=== PATIENT | female | born 1955 | race Caucasian/White ===

== ENCOUNTER → 2022-02-12 | Outpatient (CLI) | payer MEDICARE | LOC: CARD 13:30 | DX: R00.1 Bradycardia, unspecified (principal) | CPT/HCPCS: 93225; 93226 ==

== ENCOUNTER 2023-03-20 00:14 | Emergency (ER) | payer MEDICARE ==
[~2023-03-20] VITALS: Ht 165.1 cm; Wt 59.8 kg
[2023-03-20] MEDS ORDERED: ORPHENADRINE 60 MG/2 ML AMP (ED ONLY) IVP STA (00:22)
[2023-03-20] MEDS ORDERED: KETOROLAC INJ 15 MG/ML VIAL IVP STA (00:22)
[2023-03-20] MEDS ORDERED: HOLD METFORMIN - RECEIVED CONTRAST 20 ML VIAL IV SCH (00:30)
[2023-03-20] MEDS ORDERED: IOHEXOL 350 MG/ML 100 ML (OMNIPAQUE 350) VIAL IV ONE (00:30)
[2023-03-20] MEDS ORDERED: NS 100 ML (IVPB) BAG IV ONE (00:30)
--- NOTE | 2023-03-20 00:30 | ED Back Pain ---
General Chief Complaint: Back Problems Stated Complaint: BACK PAIN Source of Information: Patient, EMS History of Present Illness Date Seen by Provider: Mar 20, 2023 Time Seen by Provider: 00:16 Initial Comments 67-year-old female presenting with complaints of midthoracic back pain that started Thursday night. 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 She is not having any pain if she lays still and flat. When she tries to turn on her side or moves she has sharp pain in the mid thoracic area. She denies any fall or direct injury to her back. She denies having pain like this previously. She tried taking Tylenol around 7 PM. She could not get comfortable and the pain was severe so they called EMS to transport to the emergency department. She has a history of depression and anxiety with GERD and osteoporosis. She denies any allergies to medications. Location: T-Spine Timing/Duration: 1-2 Days Severity: Severe Pain/Injury Location: Chest (Midthoracic) Method of Injury: Unknown Modifying Factors: Worse With Movement Associated Symptoms: muscle spasms; No fever, No weakness, No numbness in legs/feet, No tingling in legs/feet, No sensory/motor loss, No lower back pain, No loss of bladder control, No loss of bowel control Allergies and Home Medications Allergies Coded Allergies: No Known Drug Allergies (Unverified , 03/20/23) Patient Home Medication List Home Medication List Reviewed: Yes Methocarbamol (Methocarbamol) 500 Mg Tablet, 1,000 MG PO Q8H PRN for MUSCLE SPASMS Prescribed by: ROXANA COPELAND on 03/20/23 0353 Review of Systems Constitutional: No chills, No fever EENTM: no symptoms reported Respiratory: No cough, No short of breath Cardiovascular: see HPI Gastrointestinal: No nausea, No vomiting Genitourinary: No dysuria Musculoskeletal: see HPI Skin: No change in color, No rash Psychiatric/Neurological: Denies Headache, Denies Numbness, Denies Paresthesia Past Pegikis-Yzsoqq-Nmbkgj Hx Patient Social History Tobacco Use?: No Substance use?: No Alcohol Use?: No Pt feels they are or have been: No Past Medical History Surgery/Hospitalization HX: Osteoporosis, Glaucoma, Acid Reflux Physical Exam Vital Signs Vital Signs - First Documented 03/20/23 00:18 Temp 37.0 Pulse 74 Resp 16 B/P (MAP) 137/80 (99) Pulse Ox 97 O2 Delivery Room Air Capillary Refill : Height, Weight, BMI Height: '" Weight: lbs. oz. kg; BMI Method: General Appearance: No Apparent Distress, WD/WN Neck: Full Range of Motion, Normal Inspection, Non Tender, Supple Cardiovascular: Regular Rate, Rhythm, Normal Peripheral Pulses Respiratory: Chest Non Tender (Pain mid thoracic spine and ribs with movement but not tender to palpation.), Lungs Clear, Normal Breath Sounds, No Accessory Muscle Use, No Respiratory Distress Gastrointestinal: Normal Bowel Sounds, No Pulsatile Mass, Non Tender, Soft Back: No CVA Tenderness Extremity: Normal Capillary Refill, Normal Inspection, Normal Range of Motion, No Pedal Edema Neurologic/Psychiatric: Alert, Oriented x3 Skin: Normal Color, Warm/Dry Progress/Results/Core Measures Results/Orders Lab Results Laboratory Tests Test 03/20/23 00:27 Range/Units White Blood Count 6.7 4.3-11.0 10^3/uL Red Blood Count 3.94 3.80-5.11 10^6/uL Hemoglobin 11.9 11.5-16.0 g/dL Hematocrit 36 35-52 % Mean Corpuscular Volume 92 80-99 fL Mean Corpuscular Hemoglobin 30 25-34 pg Mean Corpuscular Hemoglobin Concent 33 32-36 g/dL Red Cell Distribution Width 12.5 10.0-14.5 % Platelet Count 222 130-400 10^3/uL Mean Platelet Volume 9.8 9.0-12.2 fL Immature Granulocyte % (Auto) 0 % Neutrophils (%) (Auto) 74 42-75 % Lymphocytes (%) (Auto) 14 12-44 % Monocytes (%) (Auto) 9 0-12 % Eosinophils (%) (Auto) 3 0-10 % Basophils (%) (Auto) 0 0-10 % Neutrophils # (Auto) 5.0 1.8-7.8 10^3/uL Lymphocytes # (Auto) 0.9 L 1.0-4.0 10^3/uL Monocytes # (Auto) 0.6 0.0-1.0 10^3/uL Eosinophils # (Auto) 0.2 0.0-0.3 10^3/uL Basophils # (Auto) 0.0 0.0-0.1 10^3/uL Immature Granulocyte # (Auto) 0.0 0.0-0.1 10^3/uL Percent Immature Platelet Fraction 2.7 0.0-7.6 % Prothrombin Time 13.3 12.2-14.7 SEC INR Comment 1.0 0.8-1.4 Activated Partial Thromboplast Time 26 24-35 SEC Sodium Level 141 135-145 MMOL/L Potassium Level 3.6 3.6-5.0 MMOL/L Chloride Level 102 98-107 MMOL/L Carbon Dioxide Level 28 21-32 MMOL/L Anion Gap 11 5-14 MMOL/L Blood Urea Nitrogen 7 7-18 MG/DL Creatinine 0.81 0.60-1.30 MG/DL Estimat Glomerular Filtration Rate 79 BUN/Creatinine Ratio 9 Glucose Level 112 H 70-105 MG/DL Calcium Level 9.2 8.5-10.1 MG/DL Corrected Calcium 9.0 8.5-10.1 MG/DL Total Bilirubin 0.2 0.1-1.0 MG/DL Aspartate Amino Transf (AST/SGOT) 19 5-34 U/L Alanine Aminotransferase (ALT/SGPT) 10 0-55 U/L Alkaline Phosphatase 83 40-136 U/L Total Protein 6.9 6.4-8.2 GM/DL Albumin 4.3 3.2-4.5 GM/DL My Orders Orders - ROXANA COPELAND MD Cbc With Automated Diff (03/20/23:22) Comprehensive Metabolic Panel (03/20/23:22) Protime With Inr (03/20/23:22) Partial Thromboplastin Time (03/20/23:22) Ed Iv/Invasive Line Start (03/20/23:22) Ct Chest W (03/20/23:22) Ketorolac Injection (Ketorolac Injection (03/20/23:22) Orphenadrine Inj (Ed Only) (Orphenadrine (03/20/23:22) Iohexol Injection (Omnipaque 350 Mg/Ml 1 (03/20/23 00:30) Received Contrast (Hold Metformin- Contr (03/20/23 00:30) Ns (Ivpb) 100 Ml (Sodium Chloride 0.9% 1 (03/20/23 00:30) Medications Given in ED Current Medications Medications Dose Ordered Sig/Randi Route Start Time Stop Time Status Last Admin Dose Admin Iohexol 100 ml ONCE ONCE IV 03/20/23 00:30 03/20/23 00:31 DC 03/20/23 01:34 75 ML Sodium Chloride 100 ml ONCE ONCE IV 03/20/23 00:30 03/20/23 00:31 DC 03/20/23 01:34 100 ML Vital Signs/I&O 03/20/23 03/20/23 00:18 03:55 Temp 37.0 Pulse 74 68 Resp 16 16 B/P (MAP) 137/80 (99) 126/82 Pulse Ox 97 99 O2 Delivery Room Air Room Air Progress Progress Note #1: Progress Note Potential diagnosis of thoracic muscle strain, occult rib fracture, compression spine fracture. Establish peripheral IV access and check basic labs of complete blood count, comprehensive metabolic profile, coagulation factors. Order CT scan of the chest with IV contrast to evaluate for acute pathology to be causing her pain. Order Toradol 15 mg IV for pain and inflammation and Norflex 60 mg IV for muscle spasms and pain. Progress Note #2: Time: 01:39 Progress Note No acute significant abnormality on her Complete blood count, comprehensive metabolic profile, or coagulation factors. On my personal review and interpretation I do not appreciate any acute abnormality of the ribs, thoracic spine or lungs or blood vessels in chest to account for her pain. She does report having improved pain with the treatment in the ED. She is able to move without the severe pain she was having on arrival to ED with movement. Awaiting [facility] reading on her CT scan of chest with IV contrast. Progress Note #3: Time: 03:44 Progress Note I have reviewed the findings with the patient and explained that I did not see anything on the CT scan of her chest. Her symptoms are significantly improved with the medicine and treatment here in the ED. She has been able to rest a little bit and is able to move without the severe pain that she was having earlier. This seems to be more musculoskeletal in nature and I discussed the option of letting the patient go home and rest and prescribing a muscle relaxer. Advising her to try taking an anti-inflammatory to help with the pain in addition to the Tylenol. Also reviewed use of the muscle relaxers. Sent a prescription for methocarbamol 1000 mg p.o. every 8 hours as needed muscle spasms and chest wall pain. Sent enough for 5 days if needed. Advised her that if the radiologist reads the CT scan and they see something that I did not I would give her a call to review those findings and any treatment if needed. Otherwise I will not call her if the radiologist did not see anything specific on the scan. Patient was comfortable with this plan and stated that she had actually thought about asking if she could be discharged home rather than her having to wait for the radiologist report. She was comfortable with being called if the CT did not show anything in understood if she did not receive a call that met they did not see any acute process on the CT scan. 0537 I have reviewed the radiologist report from [facility] on the CT scan of the chest with IV contrast. They also did not see any acute findings in the chest. We will proceed with plan as above since patient is already been discharged and there is no acute findings to necessitate giving her a call. Diagnostic Imaging Diagonstic Imaging: CT Plain Films/CT/US/NM/MRI: chest Comments CT scan of the chest with IV contrast Impression: No acute findings in the chest. Read by radiologist Dr. Tony Branch MD at 0150 and faxed at [id number] Reviewed: [facility], Reviewed by Me Departure Impression Primary Impression: Thoracic back pain Qualified Codes: M54.6 - Pain in thoracic spine Additional Impression: Acute thoracic myofascial strain Qualified Codes: S29.019A - Strain of muscle and tendon of unspecified wall of thorax, initial encounter Disposition: 01 HOME, SELF-CARE Condition: Improved Departure-Patient Inst. Decision time for Depature: 03:52 Ref[place]: [facility] [place] Instructions: Upper Back Pain ED, Muscle Strain ED Add. Discharge Instructions: Try taking anti-inflammatory such as ibuprofen 600 mg which would be 3 of the [id number] 200 mg pills every 6-8 hours as needed for pain and inflammation. You may take acetaminophen on top of the ibuprofen if needed for additional pain control. Take the muscle relaxer up to every 8 hours as needed for pain and muscle spasms. Check back with your primary care provider for continued concerns and return or seek medical care if having worsening pain and not being relieved with the medicine. If the radiologist does see something on your CT scan you will get a call to discuss the results and any specific treatment needed for any abnormal CT findings. If they do not see anything else on the CT then you will not get a call. All discharge instructions reviewed with patient and/or family. Voiced understanding. Scripts Methocarbamol (Methocarbamol) 500 Mg Tablet 1000 MG PO Q8H PRN for MUSCLE SPASMS for 5 Days, #30 TAB 0 Refills Prov: ROXANA COPELAND MD 03/20/23 ROXANA COPELAND MD Mar 20, 2023 00:30
[2023-03-20 00:51] LABS: BASOPHILS % (AUTO) 0 % (0-10); EOSINOPHILS # (AUTO) 0.2 10^3/uL (0.0-0.3); EOSINOPHILS % (AUTO) 3 % (0-10); HEMATOCRIT 36 % (35-52); HEMOGLOBIN 11.9 g/dL (11.5-16.0); LYMPHOCYTES # (AUTO) 0.9 10^3/uL (1.0-4.0); LYMPHOCYTES % (AUTO) 14 % (12-44); MEAN CORPUSCULAR HEMOGLOBIN 30 pg (25-34); MEAN CORPUSCULAR HGB CONC 33 g/dL (32-36); MEAN CORPUSCULAR VOLUME 92 fL (80-99); MEAN PLATELET VOLUME 9.8 fL (9.0-12.2); MONOCYTES # (AUTO) 0.6 10^3/uL (0.0-1.0); MONOCYTES % (AUTO) 9 % (0-12); NEUTROPHILS % (AUTO) 74 % (42-75); PLATELET COUNT 222 10^3/uL (130-400); WHITE BLOOD COUNT 6.7 10^3/uL (4.3-11.0)
[2023-03-20 01:15] LABS: PROTHROMBIN TIME PATIENT 13.3 SEC (12.2-14.7)
[2023-03-20 01:17] LABS: ALBUMIN 4.3 GM/DL (3.2-4.5); BILIRUBIN,TOTAL 0.2 MG/DL (0.1-1.0); CALCIUM 9.2 MG/DL (8.5-10.1); CREATININE SERUM 0.81 MG/DL (0.60-1.30); POTASSIUM 3.6 MMOL/L (3.6-5.0); TOTAL PROTEIN 6.9 GM/DL (6.4-8.2)
[2023-03-20] MEDS ORDERED: METH-731 PO (03:53)
[2023-03-20 03:55] VITALS: BP 126/82
--- NOTE | 2023-03-20 06:50 | Diagnostic Imaging Report ---
PROCEDURE: CT chest with contrast only. TECHNIQUE: Multiple contiguous axial images were obtained through the chest after administration of intravenous contrast. Auto Exposure Controls were utilized during the CT exam to meet ALARA standards for radiation dose reduction. INDICATION: Mid back pain. COMPARISON: None FINDINGS: Evaluation of the lung carrera demonstrates minimal dependent posterior atelectasis and minimal apical subpleural scarring. No other focal consolidation is seen. There is no large effusion or pneumothorax. No suspicious pulmonary nodule or mass is identified. Cardiomediastinal structures show normal heart size. There is no large pericardial effusion. Small hiatal hernia is noted. No pathologically enlarged or morphologically abnormal adenopathy is present within the mediastinum, volodymyr, nor axilla. Few benign calcified mediastinal lymph nodes are noted. Osseous structures show no acute abnormalities. No lytic or blastic bony lesions are seen. Included portions of the upper abdomen show no additional acute abnormalities. IMPRESSION:. No acute cardiopulmonary process. I agree with [facility] interpretation. Dictated by: Dictated on workstation # [id number]
== END 2023-03-20 03:57 | disposition home or self-care (01) ==
LOC: EDUNIT# 00:14 → ER FS 00:15
DX: S29.012A Strain of muscle and tendon of back wall of thorax, initial encounter (principal); Z28.310 Unvaccinated for COVID-19; X58.XXXA Exposure to other specified factors, initial encounter
CPT/HCPCS: 36415; 71260; 80053; 85025; 85610; 85730; Q9967